=== PATIENT | male | born 1940 ===

== ENCOUNTER 2021-11-23 15:04 | Outpatient (CLI) | payer OTHER | END 2021-11-23 15:14 | disposition home or self-care (01) | LOC: LAB 15:04 | PROVIDERS: ATTEND Urology | DX: R97.20 Elevated prostate specific antigen [PSA] (principal) ==

== ENCOUNTER 2021-12-29 07:10 | Outpatient (CLI) | payer OTHER | END 2021-12-29 07:22 | disposition home or self-care (01) | LOC: SONOGRAMA 07:10 | PROVIDERS: ATTEND Urology | DX: C61 Malignant neoplasm of prostate (principal); N41.1 Chronic prostatitis; N40.1 Benign prostatic hyperplasia with lower urinary tract symptoms ==